=== PATIENT | female | born 1960 | race Caucasian/White ===

== ENCOUNTER → 2017-04-11 | Outpatient (CLI) | payer OTHER ==
[~2017-04-11] VITALS: Ht 162.6 cm; Wt 65.6 kg
[~2017-04-11] MED LIST: SYNTHROID0.112 MG/T PO; SYNTHROID0.125 MG/T PO; TENORMIN 2525 MG/TAB PO; TYLENOL PM EXTR1 TA1 PO; VITAMIN D 50,1.25 MG PO
[2017-04-11 08:36] VITALS: BP 145/86; PULSE 74
[2017-04-11 09:39] VITALS: BP 116/69; PULSE 92
[2017-04-11 09:40] VITALS: BP 115/63; PULSE 91
[2017-04-11 09:41] VITALS: BP 113/65; PULSE 87
== END ==
LOC: COL.CARD 08:10
DX: R07.9 Chest pain, unspecified (principal); Z98.890 Other specified postprocedural states; Z87.891 Personal history of nicotine dependence
CPT/HCPCS: A9502; J2785

== ENCOUNTER → 2017-05-04 | Outpatient (CLI) | payer OTHER | LOC: COL.PUL 10:47 | DX: R06.02 Shortness of breath (principal); Z87.891 Personal history of nicotine dependence | CPT/HCPCS: J7674 ==

== ENCOUNTER → 2019-10-16 | Outpatient (CLI) | payer OTHER | LOC: COL.RAD 12:14 | DX: R20.2 Paresthesia of skin (principal) ==

== ENCOUNTER → 2022-04-05 | Outpatient (CLI) | payer OTHER | LOC: MHCPAIN 10:06 | DX: M54.81 Occipital neuralgia (principal); M54.12 Radiculopathy, cervical region; M47.812 Spondylosis without myelopathy or radiculopathy, cervical region | CPT/HCPCS: G0463; J1100; Q9967 ==

== ENCOUNTER → 2022-04-06 | Outpatient (CLI) | payer OTHER | LOC: MHCPAIN 10:37 | DX: M47.812 Spondylosis without myelopathy or radiculopathy, cervical region (principal); M54.12 Radiculopathy, cervical region ==

== ENCOUNTER → 2022-05-02 | Outpatient (CLI) | payer OTHER | LOC: MHCPAIN 11:09 | DX: M47.812 Spondylosis without myelopathy or radiculopathy, cervical region (principal); M54.81 Occipital neuralgia; M54.12 Radiculopathy, cervical region | CPT/HCPCS: G0463 ==

== ENCOUNTER → 2022-06-13 | Outpatient (CLI) | payer OTHER | LOC: MHCPAIN 08:44 | DX: M54.81 Occipital neuralgia (principal); M54.12 Radiculopathy, cervical region; M47.812 Spondylosis without myelopathy or radiculopathy, cervical region | CPT/HCPCS: G0463 ==